=== PATIENT | female | born 1975 | race Caucasian/White ===

== ENCOUNTER 2022-09-22 13:42 | Outpatient (RCR) | payer BC, SELFPAY ==
--- NOTE | 2022-09-22 14:42 | PTOPEVAL1 ---
Assessment and note entered by Vinayak Moon Evaluation Information Assessment Status Evaluation Diagnosis right knee arthroscopy, right knee pain Onset 09/07/22 Subjective Information Pt. reports that she underwent right knee scope on 09/07/22. She reports she has not been doing any specific exercise since surgery. She reports she recently returned to driving. she notices an inability to straighten the right knee. She reports that small activities such as cleaning the house has become more difficult. [place] and would like to be able to return to doing yardwork. Reported Pain Level Pain Score 2: Self Report Assessment PT Clinical Summary Pt. is a 47 year old female who enters the clinic 2 weeks post right knee arthroscopy. She presents with impaired gait, impaired ROM, impaired strength and pain. Continued skilled PT is indicated in order to improve these areas to allow pt. ot return to all normal IADL's without limitation. Plan of Care Interventions Electrical Stimulation,Gait Training,Hot Pack/Cold Pack,Manual Therapy,Neuro Re-education,Patient/ Caregiver Educati,Therapeutic Activities, Therapeutic Exercise PT Services Indicated Yes Treatment Frequency and 2x/week x 10 visits Duration These treatments will address the objective and functional deficits as defined above. The patient will be advanced safely and appropriately in order for the patient to progress towards his/her prior level of function. Additional exercises will be introduced and as well as a comprehensive home exercise program upon discharge, if needed, ?to ensure carryover of functional gains achieved in the clinic. This treatment plan has been reviewed and agreement upon by the patient.
== END 2022-10-25 15:08 | disposition home or self-care (01) ==
LOC: CHSPT 13:42
DX: Z48.89 Encounter for other specified surgical aftercare (principal); Z98.890 Other specified postprocedural states
CPT/HCPCS: 97110; 97161; 97530